=== PATIENT | female | born 1990 | race Hispanic/Latino ===

== ENCOUNTER 2019-06-03 11:29 | Emergency (ER) | payer MEDICAID ==
[2019-06-03 12:44] LABS: BASOPHILS % (AUTO) 0.2 % (0.0-5.0); EOSINOPHILS % (AUTO) 0.3 % (0.0-8.0); HEMATOCRIT 38.6 % (36-48); LYMPHOCYTES % (AUTO) 13.7 % (21.0-51.0); MEAN CORPUSCULAR HEMOGLOBIN 29.8 pg (27.0-33.0); MEAN CORPUSCULAR HGB CONC 33.2 g/dL (32.0-36.0); MONOCYTES % (AUTO) 3.4 % (3.0-13.0); NEUTROPHILS % (AUTO) 81.4 % (40.0-77.0); PLATELET COUNT (AUTO) 180 K/uL (130-400); RED BLOOD CELL COUNT(AUTO) 4.29 MIL/uL (4.00-5.50); RED CELL DISTRIBUTION WIDTH 12.2 % (11.0-15.5); WHITE BLOOD COUNT (AUTO) 13.1 K/uL (4.8-10.8)
[2019-06-03 12:50] LABS: CREATININE 0.7 mg/dL (0.5-1.5); POTASSIUM 4.1 mmol/L (3.5-5.1)
[2019-06-03 12:50] LABS: APPEARANCE,URINE CLEAR (CLEAR); BILIRUBIN,URINE NEGATIVE (NEGATIVE); COLOR,URINE YELLOW (YELLOW); GLUCOSE, URINE (UA) NEGATIVE (NEGATIVE); KETONES,URINE NEGATIVE (NEGATIVE); LEUKOCYTE ESTERASE ,URINE NEGATIVE (NEGATIVE); NITRATE,URINE NEGATIVE (NEGATIVE); OCCULT BLOOD,URINE TRACE-INTACT (NEGATIVE); PROTEIN,URINE NEGATIVE (NEGATIVE); UROBILINOGEN,URINE 0.2 mg/dL (0.2-1.0)
[2019-06-03 13:14] LABS: BACTERIA,URINE Rare /HPF (None Seen); RBC,URINE 0-1 /HPF (0-1); WBC,URINE 0-1 /HPF (0-1)
[2019-06-03 13:18] LABS: BILIRUBIN,TOTAL 0.2 mg/dL (0.2-1.0); TOTAL PROTEIN, SERUM 7.2 g/dL (6.0-8.3)
[2019-06-03] MEDS ORDERED: FAMOTIDINE 20MG TAB 20 MG TAB ONE (13:41)
[2019-06-03] MEDS ORDERED: ONDANSETRON ODT 4 MG TAB ONE (13:42)
== END 2019-06-03 12:59 | disposition home or self-care (01) ==
LOC: EDH 11:29
DX: O26.892 Other specified pregnancy related conditions, second trimester (principal); K29.00 Acute gastritis without bleeding; Z3A.18 18 weeks gestation of pregnancy
CPT/HCPCS: 36415; 76700; 80053; 81001; 83690; 84702; 85025

== ENCOUNTER 2019-10-20 01:36 | Inpatient (IN) | payer MEDICAID ==
[~2019-10-20] VITALS: Ht 167.6 cm; Wt 98.4 kg
[2019-10-20 02:00] VITALS: BP 109/76
[2019-10-20 02:03] LABS: APPEARANCE,URINE Clear (CLEAR); BILIRUBIN,URINE Negative (NEGATIVE); COLOR,URINE Yellow (YELLOW); GLUCOSE, URINE (UA) Negative (NEGATIVE); KETONES,URINE Trace mg/dL (NEGATIVE); LEUKOCYTE ESTERASE ,URINE Negative (NEGATIVE); NITRATE,URINE Negative (NEGATIVE); OCCULT BLOOD,URINE Large (NEGATIVE); PH,URINE 5.5 (5.0-8.0); PROTEIN,URINE Negative (NEGATIVE)
[2019-10-20 02:17] LABS: BACTERIA,URINE None Seen /HPF (None Seen); RBC,URINE 26-50 /HPF (0-1); SQUAMOUS EPITHELIAL CELL,UR Rare /HPF (0-2); WBC,URINE 0-1 /HPF (0-1)
[2019-10-20] MEDS ORDERED: LACTATED RINGERS 1000ML 1,000 ML IV PRN (02:29)
[2019-10-20] MEDS ORDERED: AMPICILLIN 2GM+NS 100ML 100 ML IV SCH (02:30)
[2019-10-20] MEDS ORDERED: LACTATED RINGERS 1000ML IV PRN (02:30)
[2019-10-20] MEDS ORDERED: BUTORPHANOL TARTRATE 2 MG/ML ONE (02:34)
[2019-10-20] MEDS ORDERED: AMPICILLIN 2GM+NS 100ML 100 ML IV ONE (02:35)
[2019-10-20] MEDS ORDERED: OXYTOCIN-LR 20 UNITS/1000 ML 1,000 ML IV ONE (02:35)
[2019-10-20] MEDS ORDERED: LIDOCAINE HCL 1% 20 ML VIAL ONE (02:36)
[2019-10-20 02:40] LABS: HEMATOCRIT 40.1 % (36-48); MEAN CORPUSCULAR HEMOGLOBIN 29.7 pg (27.0-33.0); MEAN CORPUSCULAR HGB CONC 33.4 g/dL (32.0-36.0); MEAN CORPUSCULAR VOLUME 88.9 fL (79-99); RED BLOOD CELL COUNT(AUTO) 4.51 MIL/uL (4.00-5.50); WHITE BLOOD COUNT (AUTO) 11.8 K/uL (4.8-10.8)
[2019-10-20] MEDS ORDERED: BUTORPHANOL TARTRATE 2 MG/ML IVP ONE (02:45)
[2019-10-20] MEDS: OXYTOCIN-LR 20 UNITS/1000 ML 1,000 ML IV SCH ×2 (03:16→05:03)
[2019-10-20] MEDS ORDERED: PREN1TAB80 PO (04:54)
[2019-10-20] MEDS ORDERED: ACETAMINOPHEN-CODEINE 300/30MG TAB PO PRN (05:00)
[2019-10-20] MEDS ORDERED: LANOLIN 30GM OINTMENT TP PRN (05:00)
[2019-10-20] MEDS ORDERED: ACETAMINOPHEN 325 MG TAB PO PRN (05:00)
[2019-10-20] MEDS ORDERED: WITCH HAZEL 1 PAD TP PRN (05:00)
[2019-10-20] MEDS ORDERED: DIPH,PERTUSS(ACELL),TET VAC/PF 0.5 ML VIAL IM PRN (05:00)
[2019-10-20] MEDS ORDERED: BENZOCAINE/LANOLIN/ALOE VERA 60 ML AEROSOL TP PRN (05:00)
[2019-10-20] MEDS ORDERED: OXYTOCIN-LR 20 UNITS/1000 ML 1,000 ML IV SCH (05:00)
[2019-10-20] MEDS ORDERED: MEASLES/MUMPS/RUBELLA VACCINE, LIVE 0.5 ML/VIAL SQ PRN (05:00)
[2019-10-20] MEDS: IBUPROFEN 600 MG TABLET PO PRN ×2 (05:02→17:52)
[2019-10-20 05:20] VITALS: BP 114/63
[2019-10-20] MEDS ORDERED: AMPICILLIN 1GM+NS 50ML 50 ML IV SCH (06:30)
[2019-10-20 07:25] VITALS: BP 104/61
[2019-10-20] MEDS: DOCUSATE SODIUM 100 MG CAP PO SCH ×2 (09:03→20:54)
[2019-10-20 11:22] VITALS: BP 94/61
[2019-10-20 12:26] LABS: RAPID PLASMA REAGIN NONREACTIVE (NONREACTIVE)
[2019-10-20 17:34] VITALS: BP 108/62
[2019-10-20 19:26] VITALS: BP 92/64
[2019-10-21] VITALS: BP 112/68
[2019-10-21 03:28] VITALS: BP 93/58
[2019-10-21] MEDS: IBUPROFEN 600 MG TABLET PO PRN (03:56)
[2019-10-21 06:45] LABS: HEMATOCRIT 36.9 % (36-48); MEAN CORPUSCULAR HEMOGLOBIN 29.7 pg (27.0-33.0); MEAN CORPUSCULAR HGB CONC 32.5 g/dL (32.0-36.0); MEAN CORPUSCULAR VOLUME 91.3 fL (79-99); RED BLOOD CELL COUNT(AUTO) 4.04 MIL/uL (4.00-5.50); RED CELL DISTRIBUTION WIDTH 13.2 % (11.0-15.5); WHITE BLOOD COUNT (AUTO) 11.6 K/uL (4.8-10.8)
[2019-10-21 07:15] LABS: HEPATITIS Bs ANTIGEN SCREEN P Negative (Negative)
[2019-10-21 07:27] VITALS: BP 94/57
[2019-10-21] MEDS: DOCUSATE SODIUM 100 MG CAP PO SCH (08:28)
== END 2019-10-21 11:20 | disposition home or self-care (01) | DRG 560 ==
LOC: EDH 01:36 → LDH 01:37 → OBSVTOIN 01:37 → WSH 05:20
PROVIDERS: ADMIT Obstetrics & Gynecology; ATTEND Obstetrics & Gynecology
PROC: 10E0XZZ Delivery of Products of Conception, External Approach (ICD-10-PCS; principal; 2019-10-20)
PROC: 3E0234Z Introduction of Serum, Toxoid and Vaccine into Muscle, Percutaneous Approach (ICD-10-PCS; 2019-10-20)
DX: O66.0 Obstructed labor due to shoulder dystocia (principal); Z3A.37 37 weeks gestation of pregnancy; Z37.0 Single live birth; Z23 Encounter for immunization
CPT/HCPCS: 36415; 81001; 85027; 86592; 86701; 86850; 86900; 86901; 87340; 87390; G0378; J0290; J0595; J2590